=== PATIENT | female | born 1965 | race Caucasian/White ===

== ENCOUNTER → 2021-02-01 14:52 | Outpatient (CLI) | payer BC, OTHER, SELFPAY ==
--- NOTE | ~2021-02-01 | MM_ITS ---
EXAMINATION: MM screening [facility] BI w meliza HISTORY: Screening TECHNIQUE: Craniocaudal and mediolateral oblique 3-D tomosynthesis images were obtained and synthetic 2-D images were generated. CAD analysis was submitted and interpreted. COMPARISON: Comparison to multiple prior studies sequentially, with oldest reviewed study dated 02/23. BREAST PARENCHYMAL COMPOSITION: There are scattered areas of fibroglandular density. FINDINGS: There is no evidence of suspicious mass, calcification, or architectural distortion to sugg est malignancy in either breast. There has been no suspicious interval change. IMPRESSION: 1. No mammographic evidence of malignancy. 2. Recommend routine screening mammography in one year. BI-RADS Category 1: Negative Reviewed, dictated and finalized at location A.
== END ==
PROVIDERS: PCP Family Medicine; Visit Provider Obstetrics & Gynecology Gynecology
DX: Z12.31 Encounter for screening mammogram for malignant neoplasm of breast (principal)
CPT/HCPCS: 77063; 77067

== ENCOUNTER 2021-02-02 09:24 | Outpatient (CLI) | payer BC, OTHER, SELFPAY ==
--- NOTE | 2021-02-02 09:54 | ECG_ITS ---
Measurements Intervals [place] Rate: 58 P: 10 VA: 167 QRS: -31 QRSD: 116 T: 151 QT: 430 QTc: 424 Interpretive Statements SINUS BRADYCARDIA LEFT AXIS DEVIATION LEFT VENTRICULAR HYPERTROPHY AND ST-T CHANGE CANNOT RULE OUT SEPTAL INFARCT, AGE INDETERMINATE BASELINE WANDER- I, II ABNORMAL ECG Electronically Signed On 02-02-2021 11:52:46 CDT by Bello Tyler D.O.
== END 2021-02-02 09:25 | disposition home or self-care (01) ==
LOC: ANHCARD 09:33
PROVIDERS: PCP Family Medicine; Visit Provider Family Medicine
DX: Z01.818 Encounter for other preprocedural examination (principal); R94.31 Abnormal electrocardiogram [ECG] [EKG]
CPT/HCPCS: 93005

== ENCOUNTER 2021-02-06 12:50 | Outpatient (CLI) | payer BC, OTHER, SELFPAY ==
--- NOTE | 2021-02-06 12:55 | ECG_ITS ---
Measurements Intervals [place] Rate: 68 P: 31 [place]: 168 QRS: -30 QRSD: 117 T: 119 QT: 404 QTc: 432 Interpretive Statements SINUS RHYTHM LEFT VENTRICULAR HYPERTROPHY AND ST-T CHANGE CANNOT RULE OUT SEPTAL INFARCT, AGE INDETERMINATE BORDERLINE T WAVE ABNORMALITY- LATERAL LEADS BASELINE ARTIFACT- I, II, III ABNORMAL ECG Electronically Signed On 02-06-2021 13:43:12 CDT by Bello Tyler D.O.
== END 2021-02-06 12:51 | disposition home or self-care (01) ==
LOC: ANHLAB 13:05 → ANHCARD 15:02
PROVIDERS: PCP Family Medicine; Visit Provider Family Medicine
DX: R94.31 Abnormal electrocardiogram [ECG] [EKG] (principal)
CPT/HCPCS: 93005

== ENCOUNTER 2021-05-15 17:19 | Emergency (ER) | payer BC, SELFPAY ==
[2021-05-15] VITALS (16 sets, daily range): BP systolic 135–180; BP diastolic 72–112; PULSE 73–103; RESP 12–19; TEMP 36.6–37; O2SAT 97–100
--- NOTE | 2021-05-15 21:33 | ECG_ITS ---
Measurements Intervals [place] Rate: 85 P: 29 [place]: 162 QRS: -32 QRSD: 114 T: 114 QT: 388 QTc: 464 Interpretive Statements SINUS RHYTHM LEFT AXIS DEVIATION LEFT VENTRICULAR HYPERTROPHY AND ST-T CHANGE CANNOT RULE OUT SEPTAL INFARCT, AGE INDETERMINATE BASELINE ARTIFACT- V1, V3-V5 ABNORMAL ECG Electronically Signed On 05-16-2021 6:34:01 CRIPPLE CHASER by Bello Tyler D.O.
--- NOTE | 2021-05-15 22:01 | ED.GENADULT ---
HPI - General Adult General Chief complaint: Recheck/Abnormal Lab/Rx Stated complaint: high blood pressure Time Seen by Provider: 05/15/21 21:23 Source: patient and RN notes reviewed History of Present Illness HPI narrative: Patient is a 55 y/o female complaining of high blood pressure. She states that her BP was 160s/90s at home. There is no known alleviating or exacerbating factor. She states that she was instructed to come to ED by her physician. She has a mild headache, but no focal weakness of numbness. She has no chest pain or SOB. She has some left knee pain from recent surgery. Related Data Home Medications Medication Instructions Recorded Confirmed meloxicam 15 mg tablet 15 mg PO DAILY 02/06/21 hydrocodone 5 mg-acetaminophen 325 1 tablet PO .Q5-6H PRN tablet 05/12/21 mg tablet rivaroxaban 10 mg tablet 10 mg PO DAILY 05/12/21 Allergies Allergy/AdvReac Type Severity Reaction Status Date / Time PROPOXYPHENE NAPSYLATE Allergy Unknown Unknown Uncoded 05/12/21 08:54 Review of Systems Constitutional: Constitutional: Denies chills, Denies fever(s), Reports headache(s) and Denies weakness Eyes: Eyes: Denies blurry vision ENT: Reports headache(s) and Denies neck pain Cardiovascular: Cardiovascular: Denies chest pain and Denies dyspnea Respiratory: Respiratory: Denies cough and Denies dyspnea Gastrointestinal: Gastrointestinal: Denies abdominal pain, Denies diarrhea, Denies nausea and Denies vomiting Genitourinary: Genitourinary: Denies hematuria and Denies dysuria Musculoskeletal: Musculoskeletal: Denies back pain and Denies neck pain Neurologic: Reports headache(s) and Denies weakness [facility] Past Medical History Medical History Asthma Bilateral knee pain Fatigue Psoriasis Family History Family History Mother Hypertension Father Hypertension Colon polyp Grandparent Carcinoma of colon Other Family history of autism Family history of malignant neoplasm of brain Social History Social History Smoking status: Never smoker Second hand tobacco smoke exposure: No Alcohol intake: current Alcohol use details: soical Substance use: never Substance use type: does not use Gender identity (if verbalized by the patient): Female Exam Const: General: no acute distress and well developed Orientation/consciousness: oriented to person, oriented to place, oriented to time and patient oriented x3 HENMT: Head: normocephalic Ears: external ears normal General nose exam: Normal external nose present Eyes: General: appearance normal, both eyes and all related structures Conjunctivae: conjunctivae normal Neck: Neck: normal visual inspection and full ROM Chest: Chest palpation & inspection: normal inspection of the chest and no tenderness Resp: Effort & Inspection: normal respiratory effort Auscultation: clear to auscultation bilaterally Cardio: Rate: regular rate Rhythm: regular rhythm GI: GI Palp: No abdominal tenderness and Yes Soft to palpation Skin: General skin exam: normal color, turgor normal and other (left knee incision site clean and intact) Neuro: General: oriented to person, oriented to place, oriented to time and patient oriented x3 Cognition (Neuro): normal cognition Extrem: General: normal to inspection, full ROM and no pedal edema Psych: Appearance: grossly normal Mental Status: mental status grossly normal Affect: normal affect Course Vital Signs Vital signs: Vital Signs Temperature 36.6 C 05/15/21 18:20 Pulse Rate 103 H 05/15/21 18:20 Respiratory Rate 16 05/15/21 18:20 Blood Pressure 162/83 H 05/15/21 18:20 Pulse Oximetry 100 05/15/21 18:20 Temperature 37.0 C 05/15/21 23:35 Pulse Rate 86 05/16/21 00:43 Respiratory Rate 18 05/16/21 00:43 Blood Pressure 135/87 1
[2021-05-15] MEDS: hydroCHLOROthiazide 25 MG TABLET PO (22:16)
[2021-05-15] MEDS: lisinopriL 20 MG TABLET PO (22:16)
[2021-05-15 22:50] LABS: Basophils Absolute Auto 0.1 K/mm3 (0.0-0.1); Eosinophils Absolute Auto 0.2 K/mm3 (0-0.3); Eosinophils Percent Auto 3.1 % (0-4.4); Hematocrit 39.2 % (37.0-47.0); Hemoglobin 13.3 g/dL (12.0-15.0); Immature Granulocyte Absolute 0.02 K/mm3 (0.00-0.031); Immature Granulocyte Percent A 0.3 % (0-0.5); Lymphocytes Percent Auto 31.1 % (18.3-44.2); Mean Corpuscular HGB Conc 33.9 g/dl (32-36); Mean Corpuscular Hemoglobin 29.6 pg (26-34); Mean Corpuscular Volume 87.1 fl (80-100); Mean Platelet Volume 10.4 fl (7.4-10.4); Monocytes Absolute Auto 0.4 K/mm3 (0.1-0.6); Monocytes Percent Auto 6.1 % (2.6-8.5); Neutrophils Absolute Auto 3.6 K/mm3 (1.3-6.7); Neutrophils Percent Auto 58.4 % (45.5-73.1); Platelet Count Result 283 k/mm3 (150-375); Red Cell Distribution Width 12.7 % (11.5-14.5); White Blood Count 6.1 K/mm3 (4.5-10.0)
[2021-05-15 23:00] LABS: Anion Gap 9 mmol/L (8-16); Blood Urea Nitrogen 13 mg/dL (7-17); Calcium 9.8 mg/dL (8.4-10.2); Carbon Dioxide 28 mmol/L (22-30); Chloride 104 mmol/L (98-107); Estimated CRCL calculation 83 ml/min; Estimated Glomerular Filt Rate > 60; Glucose 118 mg/dL (65-110); Potassium 4.1 mmol/L (3.4-5.0); Sodium 141 mmol/L (137-145)
[2021-05-16 00:43] VITALS: BP 135/87; PULSE 86; RESP 18; O2SAT 100
== END 2021-05-16 00:47 | disposition home or self-care (01) ==
PROVIDERS: Emergency Provider Emergency Medicine; PCP Family Medicine
DX: I10 Essential (primary) hypertension (principal); J45.909 Unspecified asthma, uncomplicated; R94.31 Abnormal electrocardiogram [ECG] [EKG]; I51.7 Cardiomegaly
CPT/HCPCS: 36415; 80048; 85025; 93005; 99283; A9270

== ENCOUNTER 2021-06-13 08:58 | Outpatient (CLI) | payer BC, SELFPAY ==
--- NOTE | ~2021-06-13 | DEXA_ITS ---
Bone Density Report Name: KATHRYN CLIFFORD Age: 55 Sex: Female Ethnicity: White Date of : 1965 Indication: postmenopausal; Referring Provider: FAREED VITAL Study: Bone densitometry was performed. Exam Date: June 13, 2021 Accession number: [id number] Bone Density: Region BMD T-score Z-score Classification AP Spine (L1-L4) 1.094 0.4 1.4 Normal Femoral Neck (Left) 0.761 -0.8 0.2 Normal Total Hip (Left) 0.816 -1.0 -0.4 Normal Total Hip Bilateral Avg 0.836 -0.8 -0.3 Normal Femoral Neck (Right) 0.809 -0.4 0.6 Normal Total Hip (Right) 0.856 -0.7 -0.1 Normal World Health Organization criteria for BMD impression classify patients as: Normal (T-score at or above -1.0), Osteopenia (T-score between -1.0 and -2.5), or Osteoporosis (T-score at or below -2.5). 10-year Fracture Risk: FRAX not reported because: All T-scores for Spine Total, Hip Total, Femoral Neck at or above -1.0 Clinical Information Provided by Patient: Has used the following medications: Vitamin D, Calcium Patient maximum height was 65.5 Menopause Age: 53 No regular weight bearing exercise Drinks caffeinated beverages Onset of menses at age 16 Number of children 2 Impression: The patient has normal bone mass. Discussion: BONE DENSITY IS ABOVE THE MINIMUM DESIRABLE LEVEL AT ALL SKELETAL SITES TESTED. This patient?s bone mineral density is above the minimum desirable level (T-score -1.0 or better) at all sites measured. The patient should follow a healthful lifestyle (good nutrition with adequate calcium and vitamin D, and appropriate weight-bearing exercise). Follow-Up: Consider repeating this study in 5 years or sooner if there is some new clinical indication. Reported by: [facility] on 06/13/2021 9:29:00 AM. Reviewed, dictated and finalized at location ALennie URBINA
== END 2021-06-13 08:59 | disposition home or self-care (01) ==
PROVIDERS: PCP Family Medicine; Visit Provider Obstetrics & Gynecology Gynecology
DX: Z78.0 Asymptomatic menopausal state (principal)
CPT/HCPCS: 77080

== ENCOUNTER 2021-12-28 00:43 | Day surgery (SDC) | payer BC, SELFPAY ==
[2021-12-11 15:17] VITALS: BMI 25.0
--- NOTE | 2021-12-27 18:52 | P.PNAN_ITS ---
Anes - Initial Pre Proc Eval Procedure: Operation Date: 12/28/21 07:30 Proposed Procedures p Screening Colonoscopy - Jens Roy MD Date/Time: 12/27/21 18:52 Surgeon: Jens Roy MD Pre Op Diagnosis: fam hx colon cancer Patient Data Age: 56 Gender: F Height: 1.65 m Weight: 68.2 kg Allergies Allergy/AdvReac Type Severity Reaction Status Date / Time propoxyphene Allergy Severe blurred Verified 12/28/21 06:28 [From Darvocet-N] vision, dizziness Home Medications Medication Instructions Recorded Confirmed Type meloxicam 15 mg tablet 15 mg PO DAILY 02/06/21 12/28/21 History metoprolol succinate 25 mg 25 mg PO .HS #30 tabs 07/28/21 12/28/21 Rx tablet,extended release 24 hr sodium sul 1.479 gram-potas ch See Rx Instructions PO PER PKG DIR 11/15/21 12/28/21 Rx 0.188 gram-magnes sul 0.225 gram #24 tabs tablet (Sutab) B-complex with vitamin C 1 tablet PO DAILY 12/11/21 12/28/21 History Dialyvite Vitamin D 2,000 unit PO DAILY 12/11/21 12/28/21 History aspirin 81 mg tablet,delayed 81 mg PO DAILY 12/11/21 12/28/21 History release hydroxychloroquine 200 mg tablet 1 tablet PO BID 12/11/21 12/28/21 History lisinopril 20 1 tablet PO DAILY #30 tabs 12/11/21 12/28/21 Rx mg-hydrochlorothiazide 25 mg tablet (Zestoretic) potassium gluconate 550 mg tablet 550 meq PO DAILY 12/14/21 12/28/21 History Patient hx anesthesia problems: none Family hx anesthesia problems: none Results Review: All pre-operative results and documents have been reviewed as part of the pre- operative evaluation. [facility] Past Medical History Medical History (Updated 12/28/21 @ 07:03 by Juanjose Gurrola DO) Anxiety Asthma Bilateral knee pain Fatigue Hypertension PFO (patent foramen ovale) Prediabetes Psoriasis Family History Family History Mother Hypertension Father Hypertension Colon polyp Grandparent Carcinoma of colon Other Family history of autism Family history of malignant neoplasm of brain Social History Social History Smoking status: Never smoker Second hand tobacco smoke exposure: No Alcohol intake: current Alcohol use details: social drinker Substance use: never Substance use type: does not use Living arrangements: with family Gender identity (if verbalized by the patient): Female Spiritual care concerns: No Anes - Eval Final PreProcedure Day of Procedure 12/27/21 18:52 Patient weight: normal Heart: regular rate and rhythm Lungs: clear to auscultation Airway: Mallampati scale class II Neurological: alert and oriented Last oral intake: >/= 8 hours ASA classification: III Emergent: no Anesthetic plan: proceed Anesthesia type and monitoring: general GIVS and standard monitoring Results Review: All pre-operative results and documents have been reviewed as part of the pre- operative evaluation. Informed Consent: The patient's anesthetic plan and its attendant risks and benefits were discussed with the patient/family/POA. Questions were solicited and answers provided to the satisfaction of the patient/family/POA.
[2021-12-28 06:29] VITALS: BP 121/68; PULSE 54; RESP 16; TEMP 36.4; O2SAT 100
[2021-12-28] MEDS: AMPICILLIN 2 GM/NS 100 ML 2 GM/100 ML BAG IVPB (06:41)
[2021-12-28] MEDS: LACTATED RINGERS 1,000 ML 150 ML IV CONT (06:42)
--- NOTE | 2021-12-28 07:17 | PM.IMHP ---
H&P: HPI History of Present Illness Date/Time: 12/28/21 07:17 Chief Complaint: Neoplasia screening. Narrative: This is a 56-year-old white female patient who presents for screening colonoscopy. Family history is significant for grandfather had colon cancer in her father had colon polyps. Patient reports her current weight appetite bowel movements are normal. She denies any bleeding. She does notice occasional abdominal pain in the morning when awakening. Typically last for brief interval of time and typically after dietary indiscretion. She reports her bowel habits are normal however. She denies any fever. Patient presents today for screening colonoscopy because of family history. Review of Systems Review of Systems: Review of systems noncontributory. [facility] Past Medical History Medical History (Updated 12/28/21 @ 07:03 by Juanjose Gurrola DO) Anxiety Asthma Bilateral knee pain Fatigue Hypertension PFO (patent foramen ovale) Prediabetes Psoriasis Family History Family History Mother Hypertension Father Hypertension Colon polyp Grandparent Carcinoma of colon Other Family history of autism Family history of malignant neoplasm of brain Social History Social History Smoking status: Never smoker Second hand tobacco smoke exposure: No Alcohol intake: current Alcohol use details: social drinker Substance use: never Substance use type: does not use Living arrangements: with family Gender identity (if verbalized by the patient): Female Spiritual care concerns: No Meds Home Medications and Allergies Home Medications Medication Instructions Recorded Confirmed Type meloxicam 15 mg tablet 15 mg PO DAILY 02/06/21 12/28/21 History metoprolol succinate 25 mg 25 mg PO .HS #30 tabs 07/28/21 12/28/21 Rx tablet,extended release 24 hr sodium sul 1.479 gram-potas ch See Rx Instructions PO PER PKG DIR 11/15/21 12/28/21 Rx 0.188 gram-magnes sul 0.225 gram #24 tabs tablet (Sutab) B-complex with vitamin C 1 tablet PO DAILY 12/11/21 12/28/21 History Dialyvite Vitamin D 2,000 unit PO DAILY 12/11/21 12/28/21 History aspirin 81 mg tablet,delayed 81 mg PO DAILY 12/11/21 12/28/21 History release hydroxychloroquine 200 mg tablet 1 tablet PO BID 12/11/21 12/28/21 History lisinopril 20 1 tablet PO DAILY #30 tabs 12/11/21 12/28/21 Rx mg-hydrochlorothiazide 25 mg tablet (Zestoretic) potassium gluconate 550 mg tablet 550 meq PO DAILY 12/14/21 12/28/21 History Allergies Allergy/AdvReac Type Severity Reaction Status Date / Time propoxyphene Allergy Severe blurred Verified 12/28/21 06:28 [From Darvocet-N] vision, dizziness Vital Signs Vital Signs - 24 hr 12/28/21 06:29 Temperature 97.6 F Pulse Rate 54 L Respiratory Rate 16 Blood Pressure 121/68 Pulse Oximetry 100 Oxygen Delivery Room Air Exam Narrative: Physical exam reveals patient to be alert. Vital signs stable. HEENT exam is unremarkable. Patient is anicteric. Lungs are clear to auscultation and percussion. Heart is without murmur or extra sounds. Abdominal exam bowel sounds are present soft nontender with no organomegaly. Digital external rectal exam is normal. Assessment and Plan Assessment and plan (1) Colon cancer screening: Code(s): Z12.11 - Encounter for screening for malignant neoplasm of colon Status: Acute Assessment and Plan: Patient presents today for neoplasia screening colonoscopy. Her father had colon polyps in her grand father had colon cancer. Further recommendations will be given after colonoscopy. Fiber supplementations may be of some benefit given her occasional abdominal pain.
[2021-12-28] MEDS: SIMETHICONE ORAL SUSPENSION 20 MG/0.3 ML 30 ML BOTTLE 0.6 ML IRRIGATION (07:48)
[2021-12-28 07:55] VITALS: BP 81/51; PULSE 61; RESP 21; O2SAT 100
[2021-12-28 08:05] VITALS: BP 90/54; PULSE 56; RESP 20; O2SAT 100
[2021-12-28 08:15] VITALS: BP 91/59; PULSE 55; RESP 18; O2SAT 100
== END 2021-12-28 08:21 | disposition home or self-care (01) ==
PROVIDERS: PCP Family Medicine; Visit Provider Internal Medicine Gastroenterology
PROC: 0DJD8ZZ Inspection of Lower Intestinal Tract, Via Natural or Artificial Opening Endoscopic (ICD-10-PCS; CPT 45378; principal; 2021-12-28 07:30)
DX: Z12.11 Encounter for screening for malignant neoplasm of colon (principal); Z83.71 Family history of colonic polyps; K64.4 Residual hemorrhoidal skin tags; Z80.0 Family history of malignant neoplasm of digestive organs; F41.9 Anxiety disorder, unspecified; J45.909 Unspecified asthma, uncomplicated; R53.83 Other fatigue; I10 Essential (primary) hypertension; Q21.1 Atrial septal defect; R73.03 Prediabetes; L40.9 Psoriasis, unspecified; Z79.82 Long term (current) use of aspirin
CPT/HCPCS: 45378; J0290; J2704; J7120

== ENCOUNTER → 2022-03-06 13:37 | Outpatient (CLI) | payer BC, SELFPAY ==
--- NOTE | ~2022-03-06 | MM_ITS ---
EXAMINATION: MM screening [facility] BI w meliza HISTORY: Screening mammogram TECHNIQUE: Craniocaudal and mediolateral oblique 3-D tomosynthesis images were obtained and synthetic 2-D images were generated. CAD analysis was submitted and interpreted. COMPARISON: 01/2021, 05/2019, 12/12/2017 bilateral screening mammogram examinations BREAST PARENCHYMAL COMPOSITION: There are scattered areas of fibroglandular density. FINDINGS: There is no evidence of suspicious mass, calcification, or architectural distortion to sugg est malignancy in either breast. There has been no suspicious interval change. IMPRESSION: 1. No mammographic evidence of malignancy. 2. Recommend routine screening mammography in one year. BI-RADS Category 1: Negative Reviewed, dictated and finalized at location A.
== END ==
PROVIDERS: PCP Family Medicine; Visit Provider Obstetrics & Gynecology Gynecology
DX: Z12.31 Encounter for screening mammogram for malignant neoplasm of breast (principal)
CPT/HCPCS: 77063; 77067

== ENCOUNTER → 2022-04-05 14:57 | Outpatient (CLI) | payer BC, SELFPAY ==
--- NOTE | ~2022-04-05 | XR_ITS ---
EXAMINATION: XR foot RT 2V, XR foot LT 2V DATE: 04/05/2022 15:11 INDICATION: Unspecified osteoarthritis TECHNIQUE: 1. Dorsoplantar and lateral views of the left foot were obtained. 2. Dorsoplantar and lateral views of the right foot were obtained. COMPARISON: None. FINDINGS: Alignment is normal at both feet. No fracture. Mild osteoarthritis characterized by mild nonuniform j oint space narrowing or small marginal osteophytes at the right first and second metatarsophalangeal and a few of the bilateral tarsometatarsal and interphalangeal joints. No erosions to suggest inflamm atory arthritis. Small bone island at the left calcaneus. Soft tissues are unremarkable. No ankle pool nt effusions. IMPRESSION: 1. Typical pattern of mild polyarticular osteoarthritis in the bilateral mid and forefeet. Reviewed, dictated and finalized at location A. IMPRESSION: 1. Typical pattern of mild polyarticular osteoarthritis in the bilateral mid an d forefeet.
== END ==
PROVIDERS: PCP Family Medicine; Visit Provider Nurse Practitioner
DX: M19.071 Primary osteoarthritis, right ankle and foot (principal); M19.072 Primary osteoarthritis, left ankle and foot
CPT/HCPCS: 73620

== ENCOUNTER → 2022-11-20 16:48 | Outpatient (CLI) | payer BC, SELFPAY ==
--- NOTE | ~2022-11-20 | XR_ITS ---
EXAM: XR lumbar spine 2-3V DATE: 11/21/2022 07:53 HISTORY: M54.50 - Low back pain, unspecified . COMPARISON: 07/21/2013. FINDINGS: 5 nonrib-bearing lumbar-type vertebral bodies. Pedicles intact. 2 mm anterolisthesis at L4 -5. 2 mm retrolisthesis at L5-S1. Vertebral body heights preserved. Moderate disc space narrowing and vacuum phenomenon at L5-S1. Multilevel moderate-severe facet hypertrophy and sclerosis. No fracture or dislocation. Pelvic phleboliths. IMPRESSION: Grade 1 anterolisthesis at L4-5. Grade 1 retrolisthesis at L5-S1. Severe degenerative dis c disease at L5-S1. Moderate-severe multilevel facet arthropathy. Reviewed, dictated and finalized at location K. IMPRESSION: Grade 1 anterolisthesis at L4-5. Grade 1 retrolisthesis at L5-S1. S evere degenerative disc disease at L5-S1. Moderate-severe multilevel facet arth ropathy.
== END ==
PROVIDERS: PCP Family Medicine; Visit Provider Physician Assistant Medical
DX: M51.36 Other intervertebral disc degeneration, lumbar region (principal)
CPT/HCPCS: 72100

== ENCOUNTER 2022-12-11 09:00 | Outpatient (NON) | payer BC, SELFPAY | END 2022-12-11 09:01 | disposition home or self-care (01) | LOC: ANHLAB 12-12 16:08 | PROVIDERS: PCP Family Medicine; Visit Provider Nurse Practitioner | DX: C44.712 Basal cell carcinoma of skin of right lower limb, including hip (principal) | CPT/HCPCS: 88305 ==

== ENCOUNTER 2023-01-03 10:00 | Outpatient (CLI) | payer BC, SELFPAY ==
--- NOTE | 2023-01-03 11:00 | NEURO_ITS ---
Impression: # Status post left knee arthroplasty WithHistory of Psoriasis as well. # Normal Nerve Conduction Study except with left posterior tibial polyphasic response proximally indicative of previous surgery on knee. # Needle/EMG exam reveals mildly decreased motor unit potentials in left Quadriceps again the side patient had the knee surgery. No acute process noted Nerve Conduction Studies Anti Sensory Summary Table Stim Site NR Peak (ms) P-T Amp (?V) Site1 Site2 Delta-P (ms) Dist (cm) Jose (m/s) Left Sup Fibular Anti Sensory (Ant Lat Mall) 14 cm 3.4 26.2 14 cm Ant Lat Mall 3.4 16.0 47 Right Sup Fibular Anti Sensory (Ant Lat Mall) 14 cm 3.4 22.8 14 cm Ant Lat Mall 3.4 16.0 47 Left Sural Anti Sensory (Lat Mall) Calf 4.0 14.3 Calf Lat Mall 4.0 18.0 45 Right Sural Anti Sensory (Lat Mall) Calf 3.6 9.3 Calf Lat Mall 3.6 16.0 44 Motor Summary Table Stim Site NR Onset (ms) O-P Amp (mV) Site1 Site2 Delta-0 (ms) Dist (cm) Jose (m/s) Left Peroneal Motor (Vastus Med) Ankle NR Popit Ankle 0.0 Popit 14.5 5.4 Left Peroneal Motor Run #2 (Vastus Med) Ankle 4.3 2.7 Popit Ankle 7.6 41.0 54 Popit 11.9 1.8 Right Peroneal Motor (Vastus Med) Ankle 4.0 6.2 Popit Ankle 6.6 36.0 55 Popit 10.6 5.1 Left Tibial Motor (Abd Miller Brev) Ankle 4.6 7.1 Knee Ankle 8.1 41.0 51 Knee 12.7 4.5 Right Tibial Motor (Abd Miller Brev) Ankle 4.4 11.8 Knee Ankle 7.5 38.0 51 Knee 11.9 8.9 F Wave Studies NR F-Lat (ms) L-R F-Lat (ms) Left Peroneal (Mrkrs) (EDB) 46.88 0.47 Right Peroneal (Mrkrs) (EDB) 47.34 0.47 Left Tibial (Mrkrs) (Abd Hallucis) 46.45 1.02 Right Tibial (Mrkrs) (Abd Hallucis) 47.47 1.02 EMG Side Muscle Nerve Root Ins Act Fibs Amp Dur Recrt Comment Right AntTibialis Dp Br Fibular L4-5 Nml Nml Nml Nml Nml Right Gastroc Tibial S1-2 Nml Nml Nml Nml Nml Right Fibularis Long Sup Br Fibular L5-S1 Nml Nml Nml Nml Nml Right Flex Dig Long Tibial L5-S2 Nml Nml Nml Nml Nml Right Ext Dig Brev Dp Br Fibular L5, S1 Nml Nml Nml Nml Nml Left AntTibialis Dp Br Fibular L4-5 Nml Nml Nml Nml Nml Left Gastroc Tibial S1-2 Nml Nml Nml Nml Nml Left Fibularis Long Sup Br Fibular L5-S1 Nml Nml Nml Nml Nml Left Flex Dig Long Tibial L5-S2 Nml Nml Nml Nml Nml Left Ext Dig Brev Dp Br Fibular L5, S1 Nml Nml Nml Nml Nml Right QuadratusFem QuadFemoris L4-5, S1 Nml Nml Nml Nml Nml Left QuadratusFem QuadFemoris L4-5, S1 Nml Nml Nml >12ms Reduced MTDD
== END 2023-01-03 10:01 | disposition home or self-care (01) ==
PROVIDERS: PCP Family Medicine; Visit Provider Physician Assistant Medical
DX: G62.9 Polyneuropathy, unspecified (principal)
CPT/HCPCS: 95886; 95910

== ENCOUNTER 2023-01-07 13:55 | Outpatient (NON) | payer BC, SELFPAY | END 2023-01-07 13:56 | disposition home or self-care (01) | LOC: ANHLAB 13:56 | PROVIDERS: PCP Family Medicine; Visit Provider Nurse Practitioner | DX: C44.719 Basal cell carcinoma of skin of left lower limb, including hip (principal) | CPT/HCPCS: 88305; 88331 ==

== ENCOUNTER 2023-05-02 14:18 | Outpatient (NON) | payer BC, SELFPAY | END 2023-05-02 14:19 | disposition home or self-care (01) | LOC: ANHLAB 14:19 | PROVIDERS: PCP Family Medicine; Visit Provider Nurse Practitioner | DX: D48.5 Neoplasm of uncertain behavior of skin (principal) | CPT/HCPCS: 88305 ==

== ENCOUNTER 2023-06-06 07:35 | Outpatient (CLI) | payer BC, SELFPAY ==
--- NOTE | ~2023-06-06 | CT_ITS ---
CT of the Abdomen and Pelvis: Indication: Abdominal pain Technique: 2.5 mm axial scans were obtained through the abdomen and pelvis following intravenous adm inistration of 100 cc of Omnipaque 350. Dose reduction technique was used on this scan by utilizing a utomated exposure control and iterative reconstruction technique. The dose-length product (DLP) was 6 59.74 mGy-cm. Findings: Scans through the lung bases are unremarkable. The liver, spleen, pancreas, gallbladder, adrenals and kidneys are within normal limits. No evidence of aortic aneurysm. No lymphadenopathy. No bowel obstruction or bowel wall thickening. There is no evidence to suggest acute appendicitis. Images through the pelvis were performed. Urinary bladder unremarkable. No adnexal mass seen. No asci franc. Impression: No significant abnormalities seen. Reviewed, dictated and finalized at [facility]. NIC SECTION TECHNICAL LEAD Impression: No significant abnormalities seen.
== END 2023-06-06 07:36 | disposition home or self-care (01) ==
PROVIDERS: PCP Family Medicine; Visit Provider Physician Assistant Medical
DX: R10.9 Unspecified abdominal pain (principal)
CPT/HCPCS: 74177; Q9967

== ENCOUNTER 2023-06-25 14:29 | Outpatient (CLI) | payer BC, SELFPAY ==
--- NOTE | ~2023-06-25 | MM_ITS ---
EXAMINATION: MM screening [facility] BI w meliza HISTORY: Screening mammogram TECHNIQUE: Craniocaudal and mediolateral oblique 3-D tomosynthesis images were obtained and synthetic 2-D images were generated. CAD analysis was submitted and interpreted. COMPARISON: 03/06/2022, 01/2021, 06/02/2019 bilateral screening mammogram examinations BREAST PARENCHYMAL COMPOSITION: There are scattered areas of fibroglandular density. FINDINGS: There is no evidence of suspicious mass, calcification, or architectural distortion to sugg est malignancy in either breast. There has been no suspicious interval change. IMPRESSION: 1. No mammographic evidence of malignancy. 2. Recommend routine screening mammography in one year. BI-RADS Category 1: Negative Reviewed, dictated and finalized at location A. 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
== END 2023-06-25 14:30 | disposition home or self-care (01) ==
PROVIDERS: PCP Family Medicine; Visit Provider Obstetrics & Gynecology Gynecology
DX: Z12.31 Encounter for screening mammogram for malignant neoplasm of breast (principal)
CPT/HCPCS: 77063; 77067

== ENCOUNTER 2024-06-29 08:45 | Outpatient (CLI) | payer BC, SELFPAY ==
--- NOTE | ~2024-06-29 | MM_ITS ---
EXAMINATION: MM screening [facility] BI w meliza HISTORY: Screening mammogram TECHNIQUE: Craniocaudal and mediolateral oblique 3-D tomosynthesis images were obtained and synthetic 2-D images were generated. CAD analysis was submitted and interpreted. COMPARISON: 06/25/2023, 03/06/2022, 02/01/2021 BREAST PARENCHYMAL COMPOSITION:Not Dense. The breasts are almost entirely fatty FINDINGS: No suspicious mass, calcification, or architectural distortion are identified in either chantal ast to suggest malignancy. There has been no suspicious interval change. IMPRESSION: No mammographic evidence of malignancy. Recommend routine screening mammography in one year. BI-RADS Category 1: Negative Reviewed, dictated and finalized at location . 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
== END 2024-06-29 08:46 | disposition home or self-care (01) ==
LOC: ANHIMG 08:48
PROVIDERS: PCP Family Medicine; Visit Provider Obstetrics & Gynecology Gynecology
DX: Z12.31 Encounter for screening mammogram for malignant neoplasm of breast (principal)
CPT/HCPCS: 77063; 77067

== ENCOUNTER 2025-06-10 09:58 | Outpatient (CLI) | payer BC, SELFPAY ==
--- NOTE | ~2025-06-10 | DEXA_ITS ---
Bone Density Report Name: KATHRYN CLIFFORD Age: 59 Sex: Female Ethnicity: White Date of : 1965 Indication: postmenopausal; screening for osteoporosis; Referring Provider: FAREED [facility]ITAL Study: Bone densitometry was performed. Exam Date: June 10, 2025 Accession number: [id number] Bone Density: Region BMD T-score Z-score Classification AP Spine(L1-L4) 0.991 -0.5 0.8 Normal Femoral Neck (Left) 0.697 -1.4 -0.2 Osteopenia Total Hip (Left) 0.784 -1.3 -0.5 Osteopenia Femoral Neck (Right) 0.735 -1.0 0.2 Normal Total Hip (Right) 0.838 -0.9 0.0 Normal Total Hip Mean 0.811 -1.1 -0.3 Osteopenia World Health Organization criteria for BMD impression classify patients as: Normal (T-score at or above -1.0), Osteopenia (T-score between -1.0 and -2.5), or Osteoporosis (T-score at or below -2.5). 10-year Fracture Risk(1): Major Osteoporotic Fracture 6.9% Hip Fracture 0.5% Reported Risk Factors: [place] (), Neck BMD=0.697, BMI=29.0 (1) FRAX(R) Version 3.08. Fracture probability calculated for an untreated patient. Fracture probability may be lower if the patient has received treatment. Previous Exams: -- Region Exam Age BMD T-score BMD Change BMD Change Date g/cm2 vs Baseline vs Previous -- AP Spine (L1-L4) 06/10/2025 59 0.991 -0.5 -9.4%* -9.4%* 06/13/2021 55 1.094 0.4 Total Hip(Left) 06/10/2025 59 0.784 -1.3 -3.9%* -3.9%* 06/13/2021 55 0.816 -1.0 Total Hip(Right) 06/10/2025 59 0.838 -0.9 -2.1% -2.1% 06/13/2021 55 0.856 -0.7 -- *Denotes significance at 95% confidence level, LSC for AP Spine = 0.022 g/cm2, LSC for Total Hip = 0.027 g/cm2 Clinical Information Provided by Patient: Has used the following medications: Vitamin D Has the following medical conditions: psoriatic arthritis Patient maximum height was 65.5 Menopause Age: 53 No regular weight bearing exercise Does not regularly consume dairy products Drinks caffeinated beverages Onset of menses at age 16 Number of children 2 Missed period for more than 6 months in a row Impression: The patient has low bone mass, based on the Left Femoral Neck T-score. The patient has an estimated ten-year risk of hip fracture of 0.5% and an estimated ten-year risk of major fracture of 6.9%, based on the WHO FRAX algorithm. The BMD for the AP Spine (L1-L4) decreased, changing by -9.4% since the last DXA exam. The BMD for the Total Hip(Left) decreased, changing by -3.9% since the last DXA exam. Discussion: BONE DENSITY IS LOW AT ONE OR MORE SKELETAL SITES. This patient's lowest T-score is low at one or more skeletal sites. It meets the World Health Organization's (WHO) criteria for ?low bone mass? (T-score between -1.0 and -2.5). The patient's 10-year risk of fracture as calculated by FRAX is less than the threshold where pharmacological therapy is recommended by the National Osteoporosis Foundation (NOF). However, all treatment decisions require clinical judgment and consideration of individual patient factors, including patient preferences, comorbidities, previous drug use, risk factors not captured in the FRAX model (e.g., frailty, falls, vitamin D deficiency, increased bone turnover, interval significant decline in bone density) and possible under or overestimation of fracture risk by FRAX. The patient should follow a healthful lifestyle (good nutrition with adequate calcium and vitamin D, and appropriate weight-bearing exercise). Follow-Up: Consider repeating this study in 2 years to reassess this patient's status, or sooner if there is some new clinical indication. Reported by: MEET on 06/10/2025 10:43:00 AM. Reviewed, dictated and finalized at location A.
== END 2025-06-10 09:59 | disposition home or self-care (01) ==
LOC: MICIMG 09:59
PROVIDERS: PCP Student in an Organized Health Care Education/Training Program; Visit Provider Obstetrics & Gynecology Gynecology
DX: Z78.0 Asymptomatic menopausal state (principal); M85.852 Other specified disorders of bone density and structure, left thigh
CPT/HCPCS: 77080